=== PATIENT | female | born 1980 | race Caucasian/White ===

== ENCOUNTER → 2017-10-18 | Outpatient (CLI) | payer BC, OTHER ==
[~2017-10-18] MED LIST: ACHYD1T PO; BARIUM SUSPENSION 105% (LIQUID POLIBAR PLUS) 240 ML/DOSE PO ONE; BARIUM SUSPENSION 60% (LIQUID EZ PAQUE) 240 ML DOSE PO ONE; FLC1T PO; FRS325T PO; IBP800T PO; IOHEXOL 350 MG/ML 100 ML (OMNIPAQUE 350) VIAL IV ONE; NS 250 ML (IVPB) BAG IV ONE; PREN1TAB39 PO
--- NOTE | 2017-10-18 09:59 | Diagnostic Imaging Report ---
PROCEDURE: CT neck soft tissue with contrast. TECHNIQUE: Multiple contiguous axial images were obtained through the neck after the administration of contrast. INDICATION: Difficulty swallowing, choking. No previous. FINDINGS: The nasopharynx, the oropharynx and hypopharynx unremarkable. The free edge of the epiglottis normal. Structures of the larynx unremarkable. Airway widely patent throughout. There is no prevertebral or retro-pharyngeal abscess, hematoma or other fluid collection. No edema or distortion of the parapharyngeal fat and no pathological appearing cervical lymph nodes. The parotid, submandibular and thyroid glands appeared unremarkable. The vascular structures unremarkable. The osseous structures appeared nonacute. Thoracic inlet and visualized pulmonary apices unremarkable. IMPRESSION: Unremarkable soft tissue neck CT. There were no findings to explain the presenting complaint and no acute or suspicious abnormality is identified. Dictated by: Dictated on workstation # [id number]
--- NOTE | 2017-10-18 10:11 | Diagnostic Imaging Report ---
INDICATION: Choking episodes 2 weeks ago and difficulty swallowing. Patient ingested effervescent crystals as well as thin and thick barium imaging of the esophagus was performed. Preliminary radiograph of the chest demonstrate the heart size to be normal. The lungs are clear. Post ingestion images demonstrate the esophagus to have a smooth contour. No mass or stricture is identified. No gastroesophageal reflux or hiatal hernia was demonstrated. Total of 60 seconds of fluoroscopy was utilized. IMPRESSION: Unremarkable barium esophagram. Dictated by: Dictated on workstation # [id number]
== END ==
LOC: RAD 08:10
PROVIDERS: ATTEND Otolaryngology Otolaryngology/Facial Plastic Surgery
DX: R13.10 Dysphagia, unspecified (principal)
CPT/HCPCS: 70491; 74220

== ENCOUNTER → 2018-04-26 | Outpatient (CLI) | payer OTHER ==
[~2018-04-26] MED LIST changes: -BARIUM SUSPENSION 105% (LIQUID POLIBAR PLUS) 240 ML/DOSE PO ONE; -BARIUM SUSPENSION 60% (LIQUID EZ PAQUE) 240 ML DOSE PO ONE; -IOHEXOL 350 MG/ML 100 ML (OMNIPAQUE 350) VIAL IV ONE; -NS 250 ML (IVPB) BAG IV ONE
--- NOTE | 2018-04-26 09:22 | Diagnostic Imaging Report ---
PROCEDURE: US Gallbladder. TECHNIQUE: Multiple real-time grayscale images were obtained over the right upper quadrant in various projections. INDICATION: Right quadrant pain. The liver is normal size 14.7 cm. No discrete liver mass is identified. The portal vein is patent and shows normal compression of flow. The gallbladder is without stones or sludge. No wall thickening or biliary ductal dilatation is seen. The pancreas and right kidney are unremarkable. There is no ascites. IMPRESSION: Unremarkable gallbladder ultrasound. Dictated by: Dictated on workstation # [id number]
== END ==
LOC: RAD 08:08
PROVIDERS: ATTEND Family Medicine
DX: R10.11 Right upper quadrant pain (principal)
CPT/HCPCS: 76705

== ENCOUNTER → 2019-05-01 | Outpatient (CLI) | payer OTHER ==
[~2019-05-01] MED LIST changes: +CATHETER FLUSH 10 ML SYR IV PRN
--- NOTE | 2019-05-01 14:51 | Diagnostic Imaging Report ---
INDICATION: Abdominal pain. Patient was administered 5.3 mCi technetium 99m Choletec intravenously and imaging over the abdomen was performed. At 1 hour patient ingested Ensure and the gallbladder ejection fraction was calculated. Patient denied discomfort during the exam. Homogeneous uptake of activity by the liver is noted. There is prompt excretion of activity into the common duct and gallbladder. Normal passage of activity into the small bowel is noted. Gallbladder ejection fraction is normal at 71%. IMPRESSION: Normal HIDA scan and gallbladder ejection fraction. Dictated by: Dictated on workstation # [id number]
== END ==
LOC: CARD 11:50
PROVIDERS: ATTEND Family Medicine
DX: R10.9 Unspecified abdominal pain (principal)
CPT/HCPCS: 78227

== ENCOUNTER → 2019-05-15 | Outpatient (CLI) | payer OTHER ==
[~2019-05-15] MED LIST changes: +BARIUM for suspension 96% w/w (Vanilla Silq Medium Density) PO ONE; +BARIUM for suspension 98% w/w (Vanilla Silq High Density) PO ONE; -CATHETER FLUSH 10 ML SYR IV PRN
--- NOTE | 2019-05-15 11:52 | Diagnostic Imaging Report ---
INDICATION: Dysphagia. TECHNIQUE: Patient ingested effervescent crystals as well as thin and thick barium, and imaging of the esophagus was performed. A total of 1 minute and 12 seconds of fluoroscopic time was utilized. FINDINGS: Preliminary radiograph of the chest is unremarkable. The esophagus has a smooth contour. No mass or stricture is identified. No hiatal hernia or gastroesophageal reflux was demonstrated. IMPRESSION: Unremarkable esophagram. Dictated by: Dictated on workstation # [id number]
== END ==
LOC: RAD 10:44
PROVIDERS: ATTEND Surgery
DX: R13.10 Dysphagia, unspecified (principal)
CPT/HCPCS: 74220